=== PATIENT | male | born 1995 | race Two or more races ===

== ENCOUNTER 2019-04-04 16:40 | Emergency (ER) | payer OTHER ==
[~2019-04-04] VITALS: Ht 167.6 cm; Wt 114.0 kg
--- NOTE | 2019-04-04 16:55 | NUR ---
No answer to triage from lobby x 1.
--- NOTE | 2019-04-04 18:20 | NUR ---
TO ROOM 23
--- NOTE | 2019-04-04 18:42 | NUR ---
FIRST CONTACT WITH PT. PT SITTING UP IN [facility], AWAKE/ALERT, NAD NOTED. PT REPORTS EPISODE OF "FEELING HOT, DIZZY AND NAUSEATED THEN I FAINTED, BUT I DIDN'T PASS OUT". PT NOW A&OX4, SPEECH CLEAR, FACY SYMMETRICAL. +STRENGTH X 4. PT REPORTS RECENT "COLD OR FLU" X THREE DAYS. +DRY COUGH AND SUBJECTIVE FEVER. "THEY CHECKED BY [employer] AT WORK AND SAID IT WAS OVER 200". NO HX OF DM; FAMILY HX SIGNIFICANT FOR DM. PT DENIES POLYURIA/POLYDIPSIA/POLYPHASIA/ABD PAIN. BP/SPO2/ECG MONITORING IN PLACE. NSR ON MONITOR.
[2019-04-04 19:15] LABS: PH, VENOUS 7.374 pH (7.320-7.420)
[2019-04-04 19:16] LABS: O2 FLOW ROOM AIR L/min
[2019-04-04 19:18] LABS: BASOPHILS # (AUTO) 0.01 x10^3/uL (0-0.1); BASOPHILS % (AUTO) 0 % (0-1); EOSINOPHILS # (AUTO) 0.02 x10^3/uL (0-0.4); EOSINOPHILS % (AUTO) 0 % (1-7); LYMPHOCYTES # (AUTO) 1.91 x10^3/uL (1-3.4); LYMPHOCYTES % (AUTO) 30 % (22-44); MD NO; MEAN CORPUSCULAR HEMOGLOBIN 30.4 pg (27.5-34.5); MEAN CORPUSCULAR HGB CONC 33.1 g/dL (33.2-36.2); MEAN PLATELET VOLUME 9.8 fL (7.4-10.4); MONOCYTES # (AUTO) 0.84 x10^3/uL (0.2-0.8); MONOCYTES % (AUTO) 13 % (2-9); NEUTROPHILS # (AUTO) 3.54 x10^3/uL (1.8-6.8); NEUTROPHILS % (AUTO) 56 % (42-75); PLATELET COUNT 189 x10^3/uL (130-400); RED BLOOD COUNT 5.52 x10^6/uL (4.38-5.82); RED CELL DISTRIBUTION WIDTH 12.8 % (9.4-14.8)
--- NOTE | 2019-04-04 19:23 | NUR ---
PT TO RESTROOM AT THIS TIME FOR UA
[2019-04-04 19:27] LABS: ALBUMIN 3.7 g/dL (3.4-5.0); ANION GAP 6 mmol/L (5-15); CALCIUM 8.6 mg/dL (8.5-10.1); CHLORIDE 104 mmol/L (98-107); CREATININE 0.72 mg/dL (0.7-1.3)
--- NOTE | 2019-04-04 19:37 | NUR ---
PT AMBULATES WITH STEADY GAIT TO RESTROOM AND BACK INTO BED. NO DIZZINES UPON STANDING OR WALKING. UA OBTAINED AND TUBED TO LAB
[2019-04-04 19:48] LABS: ACETONE, SERUM Negative (Negative)
[2019-04-04 19:51] LABS: MICROSCOPIC NOT IND
[2019-04-04 19:54] LABS: CULTURE INDICATED? NO
[2019-04-04 20:08] VITALS: BP 119/74
== END 2019-04-04 20:18 | disposition home or self-care (01) ==
LOC: ED 18:44
DX: R42 Dizziness and giddiness (principal); F12.10 Cannabis abuse, uncomplicated
CPT/HCPCS: 36415; 71045; 80048; 81003; 82010; 82040; 82803; 82962; 85025; 93005; 99284